=== PATIENT | male | born 1965 | race American Indian/Alaskan Native ===

== ENCOUNTER 2019-03-07 10:01 | Emergency (ER) | payer SELFPAY ==
--- NOTE | 2019-03-07 10:45 | Emergency Department Report ---
ED Neuro Deficit HPI - General Chief Complaint: Neuro Symptoms/Deficit Stated Complaint: POSS STROKE Time Seen by Provider: 03/07/19 10:08 Source: EMS Mode of arrival: Stretcher Limitations: Other - History of Present Illness Initial Comments: [employer] Tele[facility]urology [facility] Date of Service: 03/07/2019 10:05:47 Impression: Aphasia Comments: 53 yo with aphasia and R HP. NIHSS 10, but no tPA due to time. CT also shows fairly extensive evolving L MCA stroke. No MARY due to the degree of CT changes already seen. GIven young age and extent of stroke, will need close ICU monitoring for next 24-72 hours due to edema risk. Will defer to neurology/critical care to determine if patient stays at [facility] or is transferred to facility with neuro-ICU/neurosurgery available. Metrics: Last Known Well: 03/06/2019 21:30:00 [employer] Notification Time: 03/07/2019 10:04:58 Arrival Time: 03/07/2019 10:01:00 Stamp Time: 03/07/2019 10:05:47 Time First Login Attempt: 03/07/2019 10:12:00 Video Start Time: 03/07/2019 10:12:00 Symptoms: Aphasia, R HP NIHSS Start Assessment Time: 03/07/2019 10:24:00 Patient is not a candidate for tPA. Patient was not deemed candidate for tPA thrombolytics because of Last Well Known Above 4.5 Hours. Video End Time: 03/07/2019 10:27:08 CT head was reviewed. Advanced imaging CTA head and neck obtained. Radiologist was not called back for review of advanced imaging because n/a; CTA pending but no role for MARY given extent of CT changes ER Physician notified of the decision on thrombolytics management on 03/07/2019 10:29:05 Our recommendations are outlined below. Recommendations: Activate Stroke Protocol Admission/Order Set Stroke/Telemetry Floor Neuro Checks Bedside Swallow Eval DVT Prophylaxis IV Fluids, Normal Saline Head of Bed Below 30 Degrees Euglycemia and Avoid Hyperthermia (PRN Acetaminophen) Recommended Scan: MRI Head Without Contrast Carotid Dopplers Echocardiogram - Transthoracic Echocardiogram Lipid Panel to Be Obtained, if Not Done in the Last Three Months Therapies: Physical Therapy, Occupational Therapy, Speech Therapy Assessment When Applicable Dysphaghia Screen: Swallow Evaluation, Bedside DVT prophylaxis: Choice of Primary Team Disposition: Sign Out Sign Out: Discussed with Emergency Department Provider History of Present Illness: Patient is a 53 year old Male. Patient was brought by EMS for symptoms of Aphasia, R HP 53 yo was last seen normal by family at 2130 last night. He did have a few drinks, but nothing reportedly out of the ordinary. Found this morning with R side weakness and unable to speak. EMS called and to ER for further evaluation. CT head was reviewed. Examination: 1A: Level of Consciousness - Alert; keenly responsive + 0 1B: Ask Month and Age - Aphasic + 2 1C: Blink Eyes & Squeeze Hands - Performs Both Tasks + 0 2: Test Horizontal Extraocular Movements - Normal + 0 3: Test Visual Soares - No Visual Loss + 0 4: Test Facial Palsy (Use Grimace if Obtunded) - Normal symmetry + 0 5A: Test Left Arm Motor Drift - No Drift for 10 Seconds + 0 5B: Test Right Arm Motor Drift - Drift, but doesn't hit bed + 1 6A: Test Left Leg Motor Drift - Drift, but doesn't hit bed + 1 6B: Test Right Leg Motor Drift - Drift, but doesn't hit bed + 1 7: Test Limb Ataxia (FNF/Heel-White) - No Ataxia + 0 8: Test Sensation - Normal; No sensory loss + 0 9: Test Language/Aphasia - Mute/Global Aphasia: No Usable Speech/Auditory Comprehension + 3 10: Test Dysarthria - Mute/Anarthric + 2 11: Test Extinction/Inattention - No abnormality + 0 NIHSS Score: 10 Patient was informed the Neurology Consult would happen via TeleHealth consult by way of interactive audio and video telecommunications and consented to receiving care in this manner. Due to the immediate potential for life-threatening deterioration due to underlying acute neurologic illness, I spent 35 minutes providing critical care. This time includes time for face to face visit via telemedicine, review of medical records, imaging studies and discussion of findings with providers, the patient and/or family. Dr Jm Xavier [employer] Last Observed Normal: 21:30 Location: speech, right arm - Related Data Allergies/Adverse Reactions: Allergies Allergy/AdvReac Type Severity Reaction Status Date / Time No Known Allergies Allergy Unverified 03/07/19 10:15 ED Review of Systems ROS: Stated complaint: POSS STROKE Other details as noted in HPI ED Past Medical Hx - Past Medical History Previous Medical History?: No - Surgical History Past Surgical History?: No ED Neuro Physical Exam - General Limitations: Other Suspected Stroke: Yes - NIHSS Assessment Interval: Baseline 1a. Level of Consciousness: alert/keenly responsive 1b. LOC Questions: answers no questions correctly 1c. LOC Commands: performs tasks correctly 2. Best Gaze: normal 3. Visual: no visual loss 4. Facial Palsy: normal symmetrical movement 5b. Motor Arm Right: drift 5a. Motor Arm Left: no drift 6a. Motor Leg Left: drift 6b. Motor Leg Right: drift 7. Limb Ataxia: absent 8. Sensory: normal 9. Best Language: mute/global aphasia 10. Dysarthria: mute/anarrthric 11. Extinction/Inattention: no abnormality Total Score: 10 Stroke Severity: Moderate Stroke Critical care attestation.: If time is entered above; I have spent that time in minutes in the direct care of this critically ill patient, excluding procedure time. 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
--- NOTE | 2019-03-07 10:51 | Cat Scan Report ---
. CT HEAD WITHOUT CONTRAST INDICATION / CLINICAL INFORMATION: Stroke symptoms. TECHNIQUE: Axial imaging performed from the skull apex through the skull base without the use of cont rast. Sagittal and coronal reformatted images. All CT scans at this location are performed using CT dose reduction for ALARA by means of automated exposure control. COMPARISON: None available. FINDINGS: CEREBRAL PARENCHYMA: A large area of diminished attenuation is identified throughout the left MCA dis tribution measuring up to 12.7 x 4.6 cm in axial plane. This has the appearance of a subacute ischemi c infarct. Thrombosis of the left MCA in the sylvian fissure is suspected. The remaining brain parenc hyma demonstrates normal attenuation. HEMORRHAGE: None. EXTRA-AXIAL SPACES: Normal in size and morphology for the patient's age. VENTRICULAR SYSTEM: Normal in size and morphology for the patient's age. MIDLINE SHIFT OR HERNIATION: There is mild mass effect on the left lateral ventricle but no significa nt midline shift. CEREBELLUM / BRAINSTEM: No significant abnormality. CALVARIUM: No significant abnormality. ORBITS: Normal as visualized. PARANASAL SINUSES / MASTOID AIR CELLS: Normal as visualized. SOFT TISSUES of HEAD: No significant abnormality. ADDITIONAL FINDINGS: None. IMPRESSION: Large subacute ischemic infarct is identified throughout the left MCA distribution as described. These findings were discussed with Dr. Hyman in the emergency department at 1043 hours EST. Signer Name: Gio Mena Jr, MD Signed: 03/07/2019 10:46 AM Workstation Name: [id number]
[2019-03-07 11:01] LABS: Basophils % (Auto) 0.2 % (0.0-1.8); Eosinophils % (Auto) 0.1 % (0.0-4.3); Hemoglobin 15.5 gm/dl (11.8-15.2); Lymphocytes % (Auto) 15.8 % (13.4-35.0); Mean Corpuscular HGB Conc 34 % (32-34); Mean Corpuscular Volume 93 fl (84-94); Monocytes # (Auto) 0.4 K/mm3 (0.0-0.8); Platelet Count 181 K/mm3 (140-440); Red Blood Count 4.97 M/mm3 (3.65-5.03); Red Cell Distribution Width 12.8 % (13.2-15.2)
--- NOTE | 2019-03-07 11:07 | XRay Report ---
CHEST 1 VIEW INDICATION: neuro defi. Code stroke. COMPARISON: None FINDINGS: Support devices: None. Heart: Within normal limits. Lungs/Pleura: No acute air space or interstitial disease. Additional findings: None. IMPRESSION: No acute findings. Signer Name: Gio Mena Jr, MD Signed: 03/07/2019 11:03 AM Workstation Name: [id number]
[2019-03-07 11:12] LABS: INR 0.99 (0.87-1.13); Partial Thromboplastin Time 21.8 Sec. (24.2-36.6)
[2019-03-07 11:13] LABS: Creatine Kinase MB 2.4 ng/mL (0.0-4.0)
[2019-03-07 11:14] LABS: Thrombin Time 17.1 Sec. (15.1-19.6)
[2019-03-07 11:15] LABS: Alanine Aminotransferase 41 units/L (7-56); Albumin 4.9 g/dL (3.9-5); BUN/Creatinine Ratio 13; Blood Urea Nitrogen 9 mg/dL (9-20); Calcium 9.4 mg/dL (8.4-10.2); Hemolysis Index 9
--- NOTE | 2019-03-07 11:57 | Emergency Department Report ---
ED General Adult HPI - General Chief complaint: Neuro Symptoms/Deficit Stated complaint: POSS STROKE Time Seen by Provider: 03/07/19 10:08 Source: EMS Mode of arrival: Stretcher Limitations: Other - History of Present Illness Initial comments: She presents to the emergency department via EMS for aphasia. Patient was last seen normal at 2130 the previous night. Patient is not able to speak HISTORY is obtained from EMS of inflammatory entities. Patient was found this morning right-sided weakness and able to speak. -: Sudden Consistency: constant Improves with: none Worsens with: none Associated Symptoms: denies other symptoms Treatments Prior to Arrival: none - Related Data Allergies Allergy/AdvReac Type Severity Reaction Status Date / Time No Known Allergies Allergy Unverified 03/07/19 10:15 ED Review of Systems ROS: Stated complaint: POSS STROKE Other details as noted in HPI Comment: Unobtainable due to pts medical conditions ED Past Medical Hx - Past Medical History Previous Medical History?: No - Surgical History Past Surgical History?: No - Social History Smoking Status: Never Smoker Substance Use Type: Alcohol ED Physical Exam - General Limitations: Other General appearance: alert, in no apparent distress - Head Head exam: Present: atraumatic, normocephalic - Eye Eye exam: Present: normal appearance, PERRL, EOMI - ENT ENT exam: Present: mucous membranes moist - Neck Neck exam: Present: normal inspection - Respiratory Respiratory exam: Present: normal lung sounds bilaterally. Absent: respiratory distress - Cardiovascular Cardiovascular Exam: Present: regular rate, normal rhythm. Absent: systolic murmur, diastolic murmur, rubs, gallop - GI/Abdominal GI/Abdominal exam: Present: soft, normal bowel sounds. Absent: distended, tenderness - Rectal Rectal exam: Present: deferred - Extremities Exam Extremities exam: Present: normal inspection - Back Exam Back exam: Present: normal inspection - Neurological Exam Neurological exam: Present: alert, other (aphasic) - Psychiatric Psychiatric exam: Present: other (not able to assess due to the patient's condition) - Skin Skin exam: Present: warm, dry, intact, normal color. Absent: rash ED Course Vital Signs 03/07/19 03/07/19 03/07/19 11:15 11:30 12:01 Pulse Rate 74 118 H Respiratory 17 17 17 Rate Blood Pressure 172/100 172/100 O2 Sat by Pulse 97 97 100 Oximetry - Intubation Time Out Performed: Yes Sedative: Etomidate Paralytic: Rocuronium Laryngoscope: Valentín Size: 3 ET Tube Size: 7.5 Tube Secured Depth (cm): 22 Tube Secured Location: lips Tube Placement Confirmation: visualized tube passing t, equal breath sounds bila t, confirmation by capnometr Patient Tolerated Procedure: well Intubation Complications: none ED Medical Decision Making - Lab Data Result diagrams: 03/07/19 10:34 03/07/19 10:34 - Medical Decision Making Code stroke was called on the patient's initial presentation Dr. Xavier was the tele neurologist who initially evaluated the patient On his examination he felt the patient a left MCA stroke which was confirmed by CT of the head Due to the patient's last known time well TPA was not suggested Dr. Xavier was concerned about the amount of edema on the patient's CT and felt that the patient was not a candidate for MARY Spoke to Dr. Rivera the internal medicine physician asked that we contact [facility] for further evaluation and consultation Contacted [facility] and spoke to Dr. Peck and after evaluating the patient's CT images was determined that the patient was not a candidate for MARY but he felt the patient would benefit from going to a facility with neurosurgery availability for possible craniotomy if the swelling continues Contacted the transfer center for [place] and spoke to Dr. Covarrubias who accepted the patient At 3:48 PM on reevaluation of the patient he was somnolent and barely arousable with no gag reflex It was Decided that patient needed intubation and a call was placed back to [place] to relay the changes and physical exam to Dr. Satish Covarrubias asked for the patient to be flown and to get a quick repeat Head CT after intubatuon also give IV mannitol 1 g/kg Intubation was successful Patient to CT Critical care attestation.: If time is entered above; I have spent that time in minutes in the direct care of this critically ill patient, excluding procedure time. 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 Level of Consciousness: alert/keenly responsive - LOC Questions 1b. LOC Questions: answers no questions correctly - LOC Command 1c. LOC Commands: performs tasks correctly - Best Gaze 2. Best Gaze: normal - Visual 3. Visual: no visual loss - Facial Palsy 4. Facial Palsy: normal symmetrical movement - Motor Arm 5a. Motor Arm Left: no drift 5b. Motor Arm Right: drift - Motor Leg 6a. Motor Leg Left: drift 6b. Motor Leg Right: drift - Limb Ataxia 7. Limb Ataxia: absent - Sensory 8. Sensory: normal - Best Language 9. Best Language: mute/global aphasia - Dysarthria 10. Dysarthria: severe dysarthria - Extinction and Inattention 11. Extinction/Inattention: no abnormality - Scoring Total Score: 10 Stroke Severity: Moderate Stroke
--- NOTE | 2019-03-07 12:17 | Cat Scan Report ---
CTA HEAD WITH CONTRAST HISTORY: CVA, code stroke. COMPARISON: Noncontrast CT head performed the same day TECHNIQUE: Routine non-contrast CT Head, CTA of the head and post-contrast CT Head are performed. 3-D /MIP reformats postprocessed. All CT scans at this location are performed using CT dose reduction for ALARA by means of automated exposure control. CONTRAST: 100 ml of Omnipaque 350 FINDINGS: Intracranial vertebral arteries: No significant abnormality. Basilar artery: No significant abnormality. Posterior cerebral arteries: No significant abnormality. Intracranial internal carotid arteries: No significant abnormality. Anterior cerebral arteries: No significant abnormality. Middle cerebral arteries: Focal occlusion is identified in the left MCA at the M1/M2 junction which i s best demonstrated on image 85, series 5. The right MCA is widely patent. Dural venous sinuses:Not optimally opacified. No significant abnormality. Additional findings: A moderate sized right posterior communicating artery is identified. IMPRESSION: Focal occlusion in the left MCA as described above. This correlates with the subacute ischemic infarc t seen on recent CT head. Signer Name: Gio Mena Jr, MD Signed: 03/07/2019 12:13 PM Workstation Name: [id number]
[2019-03-07 12:22] LABS: Bilirubin,Urine NEG (Negative); Blood,Urine NEG (Negative); Color,Urine Yellow (Yellow); Mucus,Urine FEW /HPF; RBC,Urine < 1.0 /HPF (0.0-6.0); Urobilinogen,Urine < 2.0 mg/dL (<2.0)
--- NOTE | 2019-03-07 12:26 | Cat Scan Report ---
CTA NECK WITH CONTRAST HISTORY: CVA, stroke protocol COMPARISON: None. TECHNIQUE: Routine CTA of the neck is performed. 3-D/MIP reformats were postprocessed. Percentage st enosis is determined by direct quantitative measurements of diseased internal carotid artery diameter compared with normal distal internal carotid artery reference segments or by criteria similar to ANNETTE CET where applicable. All CT scans at this location are performed using CT dose reduction for ALARA b y means of automated exposure control. CONTRAST: 100 ml of Omnipaque 350 FINDINGS: Aortic arch: No significant abnormality. Cervical vertebral arteries: No significant abnormality. The left vertebral artery arises from the ao rtic arch between the left subclavian and left common carotid arteries. The right vertebral artery is dominant Common carotid arteries: No significant abnormality. Cervical internal carotid arteries: No significant abnormality. Additional findings: None. IMPRESSION: Unremarkable CTA neck. No stenosis or occlusion. Aortic arch variant. Signer Name: Gio Mena Jr, MD Signed: 03/07/2019 12:21 PM Workstation Name: [id number]
[2019-03-07 12:28] LABS: Amphetamine Screen,Urine PRESUMPTIVE NEGATIVE; Benzodiazepines Screen,Urine PRESUMPTIVE NEGATIVE; Cannabinoid Screen,Urine PRESUMPTIVE NEGATIVE; Cocaine Screen,Urine PRESUMPTIVE NEGATIVE; Methadone Screen,Urine PRESUMPTIVE NEGATIVE; Opiate Screen,Urine PRESUMPTIVE NEGATIVE
[2019-03-07] MEDS ORDERED: ASPIRIN 300 MG RECT SUPP PR ONE (14:41)
[2019-03-07] MEDS ORDERED: SODIUM CHLORIDE 0.9% 1000 ML 1,000 ML IV ONE (15:46)
[2019-03-07] MEDS ORDERED: SODIUM CHLORIDE 0.9% 1000 ML 1,000 ML ONE (15:49)
[2019-03-07] MEDS ORDERED: MANNITOL 20% 500 ML IV ONE (15:51)
[2019-03-07] MEDS ORDERED: PROPOFOL 1,000 MG/100 ML BOTTLE IV ONE (16:34)
[2019-03-07] MEDS ORDERED: PROPOFOL 1,000 MG/100 ML BOTTLE IV SCH (16:35)
[2019-03-07 16:43] VITALS: BP 187/112
--- NOTE | 2019-03-07 17:17 | Cat Scan Report ---
CT head/brain wo con INDICATION / CLINICAL INFORMATION: 53 years Male; change in mental status. TECHNIQUE: Thin cut axial images obtained to the brain. Sagittal and coronal reconstructions performed. All CT s cans at this location are performed using CT dose reduction for ALARA by means of automated exposure control. COMPARISON: CT-approximately 6 hours ago FINDINGS: Loss of lucero/white differentiation again noted in the left MCA territory. Focal swelling has slightly progressed from prior with some degree of increase in the [id number]-qy-[id number] midline shift. The basal cis terns are well visualized. There is no evidence of herniation. The mass effect on the left lateral ve ntricle is increased when compared with prior. There is no entrapment of the right lateral ventricle. No signs of hemorrhagic transformation. No evidence of new, large territorial infarct. There is some degree of increased attenuation the vessels-patient received contrast today for CTA ang iogram of the head and neck. There is mild mucosal thickening in the ethmoids. IMPRESSION: 1. Large MCA territorial infarct on the left as described above with slight increase in mass effect a nd midline shift, presumably from edema, when compared with prior exam. No signs of herniation, hemor rhagic transformation, or entrapment of the right lateral ventricle. Close follow-up may be of benefi t. Signer Name: August Wong MD, III Signed: 03/07/2019 5:12 PM Workstation Name: [id number]
[2019-03-07] MEDS ORDERED: MIDAZOLAM 5 MG/5 ML INJ MDV IV ONE (23:00)
[2019-03-07] MEDS ORDERED: ETOMIDATE 20 MG/10 ML INJ IV ONE (23:00)
[2019-03-07] MEDS ORDERED: ROCURONIUM 50 MG/5 ML INJ IV ONE (23:00)
== END 2019-03-07 17:15 | disposition admitted as inpatient to this hospital (09) ==
LOC: ED 10:01
DX: I63.512 Cerebral infarction due to unspecified occlusion or stenosis of left middle cerebral artery (principal)
CPT/HCPCS: 31500; 36415; 70450; 70496; 70498; 71045; 80053; 80307; 81001; 82550; 82553; 82962; 84484; 85025; 85610; 85670; 85730; 92610; 93005; 93010; 94002; 99285; J2150; J2250; J2704; J7030; Q9967

== ENCOUNTER 2021-08-21 02:01 | Emergency (ER) | payer SELFPAY ==
[2021-08-21] MEDS ORDERED: SODIUM CHLORIDE 0.9% 1000 ML 1,000 ML IV ONE (02:10)
[2021-08-21 02:31] LABS: Basophils % (Auto) 0.3 % (0.0-1.8); Eosinophils % (Auto) 0.2 % (0.0-4.3); Hematocrit 40.2 % (35.5-45.6); Hemoglobin 13.7 gm/dl (11.8-15.2); Lymphocytes # (Auto) 0.9 K/mm3 (1.2-5.4); Lymphocytes % (Auto) 20.6 % (13.4-35.0); Mean Corpuscular HGB Conc 34 % (32-34); Mean Corpuscular Volume 89 fl (84-94); Monocytes # (Auto) 0.6 K/mm3 (0.0-0.8); Monocytes % (Auto) 12.8 % (0.0-7.3); Platelet Count 128 K/mm3 (140-440); Red Blood Count 4.54 M/mm3 (3.65-5.03); Red Cell Distribution Width 13.4 % (13.2-15.2)
[2021-08-21 02:34] VITALS: BP 113/78
--- NOTE | 2021-08-21 02:39 | XRay Report ---
CHEST 1 VIEW 08/21/2021 2:20 AM INDICATION / CLINICAL INFORMATION: Altered Mental Status. COMPARISON: One view of the chest from 03/07/2019. FINDINGS: SUPPORT DEVICES: None. HEART / MEDIASTINUM: No significant abnormality. LUNGS / PLEURA: No significant pulmonary abnormality. No significant pleural effusion. No pneumothora x. ADDITIONAL FINDINGS: No significant additional findings. IMPRESSION: 1. No acute abnormality of the chest. Signer Name: Matt Caro MD Signed: 08/21/2021 2:34 AM Workstation Name: [id number]
[2021-08-21 02:47] LABS: Alanine Aminotransferase 29 units/L (7-56); Albumin 4.2 g/dL (3.9-5); BUN/Creatinine Ratio 14; Blood Urea Nitrogen 11 mg/dL (9-20); Calcium 8.8 mg/dL (8.4-10.2); Hemolysis Index 7
[2021-08-21 02:57] LABS: INR 0.96 (0.87-1.13)
--- NOTE | 2021-08-21 03:11 | Cat Scan Report ---
CT HEAD WITHOUT CONTRAST INDICATION / CLINICAL INFORMATION: Altered Mental Status. TECHNIQUE: All CT scans at this location are performed using CT dose reduction for ALARA by means of automated exposure control. COMPARISON: CT head without contrast from 03/07/2019. FINDINGS: BRAIN PARENCHYMA: No acute intracranial hemorrhage. No evidence of recent infarct. No mass effect or midline shift. Encephalomalacia is seen secondary to an old large left MCA infarct. VENTRICULAR SYSTEM/EXTRA-AXIAL SPACES: Ventricles are normal for age. No extra-axial fluid collection . ORBITS: Normal as visualized. SKELETAL SYSTEM/SOFT TISSUES: Normal bones and soft tissues. PARANASAL SINUSES/MASTOID AIR CELLS: No significant abnormality. ADDITIONAL FINDINGS: None. IMPRESSION: 1. No acute intracranial abnormality. 2. Expected changes related to an old left MCA infarct. Signer Name: Matt Caro MD Signed: 08/21/2021 3:06 AM Workstation Name: [id number]
[2021-08-21] MEDS ORDERED: chlorproMAZINE 25 MG TAB PO ONE (04:32)
[2021-08-21 04:52] LABS: Bilirubin,Urine NEG (Negative); Blood,Urine SM (Negative); Color,Urine Yellow (Yellow); Mucus,Urine 2+ /HPF; Sperm,Urine FEW /HPF (NP)
[2021-08-21 05:07] LABS: Amphetamine Screen,Urine PRESUMPTIVE NEGATIVE; Benzodiazepines Screen,Urine PRESUMPTIVE NEGATIVE; Cannabinoid Screen,Urine PRESUMPTIVE NEGATIVE; Cocaine Screen,Urine PRESUMPTIVE NEGATIVE; Methadone Screen,Urine PRESUMPTIVE NEGATIVE; Opiate Screen,Urine PRESUMPTIVE NEGATIVE
--- NOTE | 2021-08-21 05:35 | Emergency Department Report ---
- General Chief complaint: Weakness Stated complaint: GENERALIZED WEAKNESS Time Seen by Provider: 08/21/21 02:10 Source: patient, EMS Mode of arrival: Stretcher Limitations: No Limitations - History of Present Illness Initial comments: Patient had a stroke about a month ago and he fell out of the bed earlier today. Family reported the altered mental status but patient was AAOx4. Patient is complaining of weakness MD Complaint: generalized weakness, focal weakness -: Gradual Severity scale (0 -10): 0 - Related Data Allergies Allergy/AdvReac Type Severity Reaction Status Date / Time No Known Allergies Allergy Unverified 03/07/19 10:15 ED Review of Systems ROS: Stated complaint: GENERALIZED WEAKNESS Other details as noted in HPI Constitutional: denies: chills, fever Eyes: denies: eye pain, eye discharge, vision change ENT: denies: ear pain, throat pain Respiratory: denies: cough, shortness of breath, wheezing Cardiovascular: denies: chest pain, palpitations Endocrine: no symptoms reported Gastrointestinal: denies: abdominal pain, nausea, diarrhea Genitourinary: denies: urgency, dysuria Musculoskeletal: denies: back pain, joint swelling, arthralgia Skin: denies: rash, lesions Neurological: denies: headache, weakness, paresthesias Psychiatric: denies: anxiety, depression Hematological/Lymphatic: denies: easy bleeding, easy bruising ED Past Medical Hx - Past Medical History Hx Hypertension: Yes Hx Diabetes: Yes - Social History Smoking Status: Never Smoker Substance Use Type: Alcohol ED Physical Exam - General Limitations: No Limitations General appearance: alert, other (hiccups ) - Head Head exam: Present: atraumatic, normocephalic - Eye Eye exam: Present: normal appearance - ENT ENT exam: Present: mucous membranes moist - Neck Neck exam: Present: normal inspection - Respiratory Respiratory exam: Present: normal lung sounds bilaterally. Absent: respiratory distress - Cardiovascular Cardiovascular Exam: Present: regular rate, normal rhythm. Absent: systolic murmur, diastolic murmur, rubs, gallop - GI/Abdominal GI/Abdominal exam: Present: soft, normal bowel sounds - Rectal Rectal exam: Present: deferred - Extremities Exam Extremities exam: Present: normal inspection - Back Exam Back exam: Present: normal inspection - Neurological Exam Neurological exam: Present: alert, oriented X3, other (rt side weakness ) - Psychiatric Psychiatric exam: Present: normal affect, normal mood - Skin Skin exam: Present: warm, dry, intact, normal color. Absent: rash ED Course Vital Signs 08/21/21 08/21/21 02:33 02:34 Temperature 99.8 F H Pulse Rate 78 Respiratory 14 Rate Blood Pressure 113/78 [Left] O2 Sat by Pulse 98 98 Oximetry ED Medical Decision Making - Lab Data Result diagrams: 08/21/21 02:15 08/21/21 02:15 - EKG Data -: EKG Interpreted by Me EKG shows normal: sinus rhythm Rate: normal - EKG Data Interpretation: nonspecific ST-T wave eyad Critical care attestation.: If time is entered above; I have spent that time in minutes in the direct care of this critically ill patient, excluding procedure time. ED Disposition Clinical Impression: Weakness, Hiccups, CVA, old, hemiparesis Disposition: 01 HOME / SELF CARE / HOMELESS Is pt being admited?: No Does the pt Need Aspirin: No Condition: Stable Referrals: PRIMARY CARE, [Primary Care Provider] - 3-5 Days
--- NOTE | 2021-08-21 18:05 | Electrocardiograph Report ---
[facility] Test Date: 2021-08-21 Test Time: 03:10:52 Pat Name: STEPHANI MURILLO Department: Room: Gender: M Food Science Technician: RONAL : 1965 Requested By: BAYRON EASTON Order Number: [id number] Reading MD: Yadira Martinez Measurements Intervals [place] Rate: 73 P: 67 TN: 149 QRS: -24 QRSD: 100 T: 75 QT: 382 QTc: 421 Interpretive Statements Sinus rhythm No previous ECG available for comparison Electronically Signed On 08-21-2021 18:04:48 EDT by Yadira Martinez
== END 2021-08-21 05:59 | disposition home or self-care (01) ==
LOC: ED 02:01
DX: G81.90 Hemiplegia, unspecified affecting unspecified side (principal); R06.6 Hiccough; R53.1 Weakness; Z86.73 Personal history of transient ischemic attack (TIA), and cerebral infarction without residual deficits; I10 Essential (primary) hypertension; E11.9 Type 2 diabetes mellitus without complications; Z72.89 Other problems related to lifestyle
CPT/HCPCS: 36415; 70450; 71045; 80053; 80307; 81001; 82140; 82550; 84484; 85025; 85610; 93005; 96360; 99285; J7030; Q0161; 80320; G0480